=== PATIENT | female | born 1995 | race Asian ===

== ENCOUNTER → 2021-11-10 | Emergency (ER) | payer SELFPAY ==
--- NOTE | 2021-11-10 18:40 | NUR ---
PT CALLED FOR TRIAGE X2 SEPARATE TIMES - WAS NOT IN THE WAITING ROOM.
== END | disposition left against medical advice (07) ==
LOC: ER 17:58
DX: Z53.21 Procedure and treatment not carried out due to patient leaving prior to being seen by health care provider (principal)

== ENCOUNTER 2022-04-30 18:48 | Emergency (ER) | payer MEDICAID ==
[~2022-04-30] VITALS: Ht 165.1 cm; Wt 81.2 kg
--- NOTE | 2022-04-30 19:15 | NUR ---
Dr. Oshea evaluating patient at bedside. MSE in progress.
[2022-04-30 19:38] LABS: HEMATOCRIT 41.7 % (31.2-41.9); MEAN CORPUSCULAR HEMOGLOBIN 31.2 uug (24.7-32.8); MEAN CORPUSCULAR VOLUME 92.6 fL (75.5-95.3); PLATELET COUNT (AUTO) 412 K/uL (179-408)
[2022-04-30 19:53] LABS: BILIRUBIN,DIRECT 0.2 mg/dL (0.0-0.2); BILIRUBIN,TOTAL 0.3 mg/dL (0.2-1.0); CREATININE 0.7 mg/dL (0.6-1.3); POTASSIUM 3.5 mmol/L (3.5-5.1); TOTAL PROTEIN, SERUM 8.2 g/dL (6.4-8.2)
--- NOTE | 2022-04-30 20:00 | NUR ---
Ultrasound at bedside.
[2022-04-30 21:13] LABS: *BILIRUBIN,URIN NEGATIVE (NEGATIVE); *CLARITY,URINE CLEAR (CLEAR); *COLOR,URINE YELLOW (YELLOW); *KETONES,URINE NEGATIVE (NEGATIVE); *UROBILINOGEN,URINE 0.2 E.U./dl (NORMAL); LEUKOCYTE ESTERASE ,URINE NEGATIVE (NEGATIVE); NITRITE, URINE NEGATIVE (NEGATIVE); UGLUCOSE NEGATIVE (NEGATIVE)
[2022-04-30 21:14] LABS: *BLOOD, URINE NEGATIVE (NEGATIVE)
--- NOTE | 2022-04-30 21:44 | NUR ---
Patient discharged to home in stable condition. Written and verbal after care instructions given. Patient verbalizes understanding of instructions. Stressed follow up or return to ER for worsening s/s.
[2022-04-30 21:45] VITALS: BP 136/84
== END 2022-04-30 21:45 | disposition home or self-care (01) ==
LOC: ER 18:48
DX: O26.891 Other specified pregnancy related conditions, first trimester (principal); Z3A.00 Weeks of gestation of pregnancy not specified; R10.2 Pelvic and perineal pain
CPT/HCPCS: 36415; 76856; 83690; 85025; 86850; 86900; 86901; A4663